=== PATIENT | female | born 1995 | race Caucasian/White ===

== ENCOUNTER → 2025-03-11 12:40 | Outpatient (CLI) | payer OTHER, SELFPAY | PROVIDERS: Visit Provider Chiropractor | DX: J02.9 Acute pharyngitis, unspecified (principal) | CPT/HCPCS: 87070 ==

== ENCOUNTER → 2025-05-30 07:00 | Outpatient (CLI) | payer OTHER, SELFPAY ==
--- NOTE | 2025-05-30 07:01 | DI.US.S_ITS ---
PROCEDURE: US PELVIC COMPLETE INDICATIONS: INFREQUENT MENSES/PELVIC PAIN. TECHNIQUE: Real-time scanning mild trans abdominal approach was performed of the pelvic organs, with image documentation. Additional endovaginal scanning was attempted but patient was unable to tolerate. COMPARISON: None. FINDINGS: Uterus: Uterus is anteverted and normal in size at 8.1 x 5.5 x 3.3 cm. Suggestion of arcuate uterus. The myometrium is homogeneous. The endometrium measures 12.4 mm combined thickness. Ovaries: The right ovary measures 3.8 x 2.6 x 1.8 cm, with a calculated ovarian volume of 9.1 cc. The left ovary measures 10 x 2.9 x 1.6 cm, with a calculated ovarian volume of 6.5 cc. The ovaries have a normal sonographic appearance. Less than 12 follicles can be seen in each ovary. No adnexal masses are seen. Other: No pathologic free abdominal or pelvic fluid. IMPRESSION: Limited evaluation given only transabdominal imaging was performed. Suggestion of arcuate uterus. Otherwise unremarkable exam. We strive to produce accurate, complete, and clear reports of imaging services. To assist us in improving patient care, this report was composed using standard report templates and voice recognition software. Therefore, it may contain abnormal punctuation, insertions and/or omissions. Occasional wrong-word or sound-alike substitutions may occur. Though we review the report and make efforts to correct it, we do recommend that the report be read carefully in proper context to recognize any text inaccuracies. Dictated by: Debbi Lawrence M.D. on 05/30/2025 at 15:14 Approved by: Debbi Lawrence M.D. on 05/30/2025 at 15:17
== END ==
LOC: US 07:01
PROVIDERS: PCP Family Medicine; Referring Provider Family Medicine; Visit Provider Family Medicine
DX: N93.9 Abnormal uterine and vaginal bleeding, unspecified (principal)
CPT/HCPCS: 76856

== ENCOUNTER → 2025-06-04 12:08 | Outpatient (CLI) | payer OTHER, SELFPAY ==
[2025-06-04 12:21] LABS: Hematocrit 39.8 % (36-46); Hemoglobin 13.4 g/dL (12.0-16.0); Mean Corpuscular HGB Conc 33.7 % (30-36); Mean Corpuscular Hemoglobin 29.0 PG (26-34); Mean Corpuscular Volume 86.0 fL (80-100); Platelet Count 151 X10^3/uL (150-400)
[2025-06-04 12:43] LABS: HEMOLYSIS < 15 (0-50); Iron 86 ug/dL (37-170)
[2025-06-04 12:45] LABS: Alanine Aminotransferase 26 IU/L (<35); Albumin 4.6 g/dL (3.5-5.0); Albumin Globulin Ratio 1.5 (1.0-2.8); Alkaline Phosphatase 44 U/L (38-126); Blood Urea Nitrogen 19 mg/dL (7-17); Calcium 9.3 mg/dL (8.4-10.2); Carbon Dioxide 25 mmol/L (22-32); Chloride 106 mmol/L (98-107); Estimated Glomerular Filt Rate > 60 mL/min (>60); Globulin 3.0 g/dL (1.7-4.1); Glucose 91 mg/dL (70-99); HEMOLYSIS < 15 (0-50); Potassium 4.5 mmol/L (3.4-5.1); Sodium 139 mmol/L (137-145); Total Protein 7.6 g/dL (6.3-8.2)
[2025-06-04 12:54] LABS: Percent Iron Saturation 25 % (15-50); Total Iron Binding Capacity 340 ug/dL (265-497); Transferrin 288 mg/dL (206-381)
[2025-06-04 13:19] LABS: Ferritin 12 ng/mL (6-137)
[2025-06-04 18:15] LABS: Follicle Stimulating Hormone 6.41 mIU/mL
== END ==
PROVIDERS: Family Provider Family Medicine; PCP Family Medicine; Referring Provider Family Medicine; Visit Provider Family Medicine
DX: N93.9 Abnormal uterine and vaginal bleeding, unspecified (principal); Z86.39 Personal history of other endocrine, nutritional and metabolic disease
CPT/HCPCS: 36415; 80053; 82728; 83001; 83002; 83540; 83550; 84146; 84402; 84403; 85027